=== PATIENT | female | born 1955 | race Two or more races ===

== ENCOUNTER 2022-11-12 05:41 | Day surgery (SDC) | payer OTHER ==
[~2022-11-12] VITALS: Ht 172.7 cm; Wt 57.6 kg
[~2022-11-12 05:41] MED LIST: TOPROL XL25 M1 PO
[2022-11-12] MEDS ORDERED: TRAM1TAB98 PO (09:15)
== END 2022-11-12 11:15 | disposition home or self-care (01) ==
LOC: CIR.AMB 05:41
PROVIDERS: ATTEND Surgery
DX: C50.012 Malignant neoplasm of nipple and areola, left female breast (principal); C78.5 Secondary malignant neoplasm of large intestine and rectum; Z20.822 Contact with and (suspected) exposure to COVID-19

== ENCOUNTER 2024-07-30 11:12 | Outpatient (CLI) | payer OTHER ==
[~2024-07-30 11:12] MED LIST changes: +TRAM1TAB98 PO
[2024-07-30 12:07] LABS: BASO % 1.6 % (0.1-1.2); EOS % 3.6 % (0.7-7.0); HEMATOCRIT 40.4 % (34.1-44.9); HEMOGLOBIN 13.1 g/dL (11.2-15.7); LYMPH # 1.53 (1.18-3.74); LYMPH % 27.9 % (19.3-53.1); MEAN CORPUSCULAR HEMOGLOBIN 28.9 pg (25.6-32.2); MONO # 0.67 (0.24-0.82); NEUT # 2.98 (1.56-6.13); NEUT % 54.5 % (34.0-71.1); PLATELET COUNT 225 K/uL (163-369); RED BLOOD COUNT 4.53 M/uL (3.93-5.22)
[2024-07-30 12:08] LABS: MONO % 12.2 % (4.7-12.5)
[2024-07-30 12:10] LABS: URINE APPEARANCE Clear; URINE BILIRRUBIN Negative (NEGATIVE); URINE COLOR Yellow; URINE GLUCOSE Negative (NEGATIVE); URINE KETONE Negative (NEGATIVE); URINE LEUKOCYTE Negative; URINE NITRATE Negative; URINE PROTEIN Negative (NEGATIVE)
[2024-07-30 12:14] LABS: URINE BACTERIA 172.5 uL (0.0-1933); URINE RBC 13.5 uL (0.0-20.8); URINE WBC 3.7 uL (0.0-23.2)
[2024-07-30 12:20] LABS: URINE BLOOD Traces
[2024-07-30 12:30] LABS: INR 1.02; PARTIAL THROMBOPLASTIN TIME 30.2 SECONDS (22.0-34.0); PROTHROMBIN TIME 11.1 SECONDS (9.0-11.5)
[2024-07-30 12:50] LABS: CALCIUM 10.3 mg/dL (8.5-10.1); CREATININE SERUM 0.78 mg/dL (0.55-1.02); GFR 73.66; PHOSPHOROUS 2.9 mg/dL (2.5-4.9); POTASSIUM 4.62 mEq/L (3.5-5.1)
== END 2024-07-30 13:43 | disposition home or self-care (01) ==
LOC: LAB 11:12
PROVIDERS: ATTEND Surgery
DX: C50.012 Malignant neoplasm of nipple and areola, left female breast (principal)

== ENCOUNTER → 2024-08-04 08:15 | Outpatient (CLI) | payer OTHER | END | disposition home or self-care (01) | LOC: NUCLEAR 08:00 | PROVIDERS: ATTEND Surgery | DX: C50.012 Malignant neoplasm of nipple and areola, left female breast (principal); I82.621 Acute embolism and thrombosis of deep veins of right upper extremity ==

== ENCOUNTER 2024-08-06 05:30 | Day surgery (SDC) | payer OTHER ==
[2024-07-30 12:37] VITALS: BP 100/67
[~2024-08-06] VITALS: Ht 175.3 cm; Wt 56.7 kg
[2024-08-06] MEDS ORDERED: CEFAZOLIN SODIUM 1,000 MG VIAL ONE (06:42)
[2024-08-06] MEDS ORDERED: BUPIVACAINE HCL/MPF 0.5% 30ML VIAL ONE (07:30)
[2024-08-06] MEDS ORDERED: LIDOCAINE HCL 1%/EPINEPHRINE 20ML VIAL IJ ONE (07:30)
[2024-08-06] MEDS ORDERED: TRAM1TAB98 PO (09:55)
== END 2024-08-06 11:15 | disposition home or self-care (01) ==
LOC: CIR.AMB 05:30
PROVIDERS: ATTEND Surgery
DX: T82.594A Other mechanical complication of infusion catheter, initial encounter (principal); C50.012 Malignant neoplasm of nipple and areola, left female breast

== ENCOUNTER 2024-08-24 05:18 | Day surgery (SDC) | payer OTHER ==
[2024-08-24] MEDS ORDERED: LIDOCAINE HCL 1%/EPINEPHRINE 20ML VIAL IJ ONE (07:06)
[2024-08-24] MEDS ORDERED: BUPIVACAINE HCL/MPF 0.5% 30ML VIAL ONE (07:06)
== END 2024-08-24 13:45 | disposition home or self-care (01) ==
LOC: CIR.AMB 05:18
PROVIDERS: ATTEND Radiology Diagnostic Radiology
DX: T82.514A Breakdown (mechanical) of infusion catheter, initial encounter (principal); C50.012 Malignant neoplasm of nipple and areola, left female breast